=== PATIENT | female | born 1995 | race Two or more races ===

== ENCOUNTER → 2022-08-03 | Outpatient (REF) | payer OTHER ==
[2022-08-03 17:35] LABS: RSV AMPLIFICATION NEGATIVE (NEGATIVE)
== END ==
LOC: M LAB REF 16:19
PROVIDERS: ATTEND Physician Assistant
DX: B34.9 Viral infection, unspecified (principal)

== ENCOUNTER 2022-08-08 17:03 | Emergency (ER) | payer OTHER ==
[~2022-08-08] VITALS: Ht 170.2 cm; Wt 93.2 kg
[2022-08-08 17:04] VITALS: BP 150/84
[2022-08-08] MEDS ORDERED: IBUP200T46 PO (17:25)
== END 2022-08-08 21:04 | disposition left against medical advice (07) ==
LOC: M ED 17:03
DX: Z53.21 Procedure and treatment not carried out due to patient leaving prior to being seen by health care provider (principal)

== ENCOUNTER → 2023-11-30 | Outpatient (CLI) | payer MEDICAID ==
[~2023-11-30] MED LIST: IBUP200T46 PO
== END ==
LOC: M WHC 10:27
PROVIDERS: ATTEND Obstetrics & Gynecology
DX: Z53.9 Procedure and treatment not carried out, unspecified reason (principal)

== ENCOUNTER → 2023-11-30 | Outpatient (CLI) | payer MEDICAID ==
[2023-11-30 14:05] LABS: HEMATOCRIT 35.3 % (36.0-47.0); HEMOGLOBIN 11.8 g/dl (12.0-15.5); MEAN CORPUSCULAR HEMOGLOBIN 30.2 pg (27.0-33.0); MEAN CORPUSCULAR HGB CONC 33.4 g/dl (32.0-36.5); MEAN CORPUSCULAR VOLUME 90.3 fl (80.0-96.0); PLATELET COUNT, AUTOMATED 294 10^3/uL (150-450); RED BLOOD COUNT 3.91 10^6/uL (4.00-5.40); WHITE BLOOD COUNT 12.8 10^3/uL (4.0-10.0)
[2023-11-30 15:12] LABS: HIV 1&2 SCREEN NEGATIVE (NEGATIVE)
[2023-11-30 15:19] LABS: HEPATITIS C VIRUS ABY INDEX 0.04 INDEX (<0.8)
== END ==
LOC: M PLALAB 10:41
PROVIDERS: ATTEND Obstetrics & Gynecology
DX: Z34.92 Encounter for supervision of normal pregnancy, unspecified, second trimester (principal); R87.610 Atypical squamous cells of undetermined significance on cytologic smear of cervix (ASC-US); R87.618 Other abnormal cytological findings on specimens from cervix uteri

== ENCOUNTER → 2024-01-01 | Outpatient (CLI) | payer MEDICAID, OTHER | LOC: M WHC 06:48 | PROVIDERS: ATTEND Obstetrics & Gynecology | DX: Z34.92 Encounter for supervision of normal pregnancy, unspecified, second trimester (principal) ==

== ENCOUNTER → 2024-02-01 | Outpatient (CLI) | payer OTHER ==
[2024-02-01 10:50] LABS: HEMATOCRIT 32.3 % (36.0-47.0); HEMOGLOBIN 10.8 g/dl (12.0-15.5); MEAN CORPUSCULAR HEMOGLOBIN 30.6 pg (27.0-33.0); MEAN CORPUSCULAR HGB CONC 33.4 g/dl (32.0-36.5); MEAN CORPUSCULAR VOLUME 91.5 fl (80.0-96.0); PLATELET COUNT, AUTOMATED 276 10^3/uL (150-450); RED BLOOD COUNT 3.53 10^6/uL (4.00-5.40); WHITE BLOOD COUNT 16.5 10^3/uL (4.0-10.0)
== END ==
LOC: M PLALAB 07:59
PROVIDERS: ATTEND Obstetrics & Gynecology
DX: Z34.92 Encounter for supervision of normal pregnancy, unspecified, second trimester (principal)

== ENCOUNTER → 2024-04-11 | Outpatient (REF) | payer OTHER, MEDICAID | LOC: M SFHCWAGY 12:21 | PROVIDERS: ATTEND Obstetrics & Gynecology | DX: Z36.85 Encounter for antenatal screening for Streptococcus B (principal); Z3A.35 35 weeks gestation of pregnancy ==

== ENCOUNTER 2024-05-01 13:31 | Inpatient (IN) | payer OTHER, MEDICAID ==
[~2024-05-01] VITALS: Ht 167.6 cm; Wt 115.6 kg
[2024-05-01] VITALS (7 sets, daily range): BP systolic 112–143; BP diastolic 56–85; O2SAT 99
[2024-05-01] MEDS ORDERED: PREN1CHW6 PO (13:46)
[2024-05-01] MEDS ORDERED: CLAR10CA3 PO (13:46)
[2024-05-01] MEDS ORDERED: HOME MED LIST COMPLETE! XX SCH (13:50)
[2024-05-01] MEDS ORDERED: TRANEXAMIC ACID INJection 1,000 MG in NS 100 ML IV PRN (14:30)
[2024-05-01] MEDS ORDERED: METHYLERGONOVINE MALEATE 0.2MG/ML 1ML VIAL IM PRN (14:30)
[2024-05-01] MEDS ORDERED: OXYTOCIN INJ 10UNITS/ML 1ML VIAL IM PRN (14:30)
[2024-05-01] MEDS ORDERED: CARBOPROST TROMETHAMINE 250 MCG/ML AMP IM PRN (14:30)
[2024-05-01] MEDS ORDERED: LIDOCAINE 1% MDV 20ML VIAL INFIL PRN (14:30)
[2024-05-01] MEDS: LACTATED RINGER'S 1000 ML IV STA (14:37)
[2024-05-01] MEDS: miSOPROStol 50MCG 1/2 TABLET PO SCH (14:45)
[2024-05-01 14:56] LABS: HEMATOCRIT 32.9 % (36.0-47.0); HEMOGLOBIN 11.1 g/dl (12.0-15.5); MEAN CORPUSCULAR HEMOGLOBIN 29.3 pg (27.0-33.0); MEAN CORPUSCULAR HGB CONC 33.7 g/dl (32.0-36.5); MEAN CORPUSCULAR VOLUME 86.8 fl (80.0-96.0); PLATELET COUNT, AUTOMATED 270 10^3/uL (150-450); RED BLOOD COUNT 3.79 10^6/uL (4.00-5.40)
[2024-05-01 16:02] LABS: HEPATITIS C VIRUS ABY INDEX < 0.02 INDEX (<0.8)
[2024-05-02] VITALS (72 sets, daily range): BP systolic 81–159; BP diastolic 46–87; O2SAT 100
[2024-05-02] MEDS: ONDANSETRON 4MG 2ML VIAL IV PRN (02:37)
[2024-05-02] MEDS ORDERED: ePHEDrine SULFATE 25 MG/5 ML(5MG/ML) SYRINGE IVP PRN (02:55)
[2024-05-02] MEDS ORDERED: EPIDURAL/PCA KEYS XX PRN (02:55)
[2024-05-02] MEDS ORDERED: NALOXONE INJ 0.4MG/1ML VIAL IV PRN ×2 (02:55)
[2024-05-02] MEDS ORDERED: diphenhydrAMINE 50MG/ML VIAL IV PRN (02:55)
[2024-05-02] MEDS ORDERED: LR 500 ML IV PRN (02:55)
[2024-05-02] MEDS ORDERED: ONDANSETRON 4MG 2ML VIAL IV PRN ×2 (02:55→19:45)
[2024-05-02] MEDS: FENTANYL/ROPIVACAINE/NACL BAG 100 ML EPIDURAL SCH (03:05)
[2024-05-02] MEDS: LR 500 ML IV PRN (04:31)
[2024-05-02] MEDS: ePHEDrine SULFATE 25 MG/5 ML(5MG/ML) SYRINGE IVP PRN (04:31)
[2024-05-02] MEDS: OXYTOCIN DRIP 30 UNITS in IV 1 EA IV SCH ×2 (05:19→19:45)
[2024-05-02] MEDS: LR 1,000 ML IV SCH (06:43)
[2024-05-02] MEDS: OXYTOCIN DRIP 30 UNITS in IV 1 EA IV PRN ×2 (17:35→18:00)
[2024-05-02] MEDS ORDERED: LR 1,000 ML IV SCH (19:45)
[2024-05-02] MEDS ORDERED: RHO(D) IMMUNE GLOBULIN/MALTOSE 500MCG(2500IU)/2.2ML VIAL (WINRHO) IM SCH (19:45)
[2024-05-02] MEDS ORDERED: DOCUSATE SODIUM 100MG CAPSULE PO PRN (19:45)
[2024-05-02] MEDS ORDERED: ANUSOL HC CREAM 30GM TOP PRN (19:45)
[2024-05-02] MEDS: IBUPROFEN 800 MG TAB PO PRN (20:20)
[2024-05-02] MEDS: ACETAMINOPHEN 500 MG TAB PO PRN (20:20)
[2024-05-03] MEDS: DIBUCAINE 1% OINTMENT 30GM TOP PRN (05:12)
[2024-05-03] MEDS: IBUPROFEN 600MG TAB PO PRN (05:14)
[2024-05-03 06:00] VITALS: BP 114/68; O2SAT 99
[2024-05-03 08:00] VITALS: BP 114/68; TEMP 97.2; O2SAT 99
[2024-05-03] MEDS: PRENATAL VITAMINS CHEWABLE TABLET PO SCH (10:25)
[2024-05-03] MEDS: LORATADINE 10 MG TAB PO SCH (10:25)
[2024-05-03 18:00] VITALS: BP 126/76; O2SAT 99
[2024-05-04 06:00] VITALS: BP 123/71; O2SAT 100
[2024-05-04] MEDS: ACETAMINOPHEN TAB 650MG DOSE (2X325MG) PO PRN (06:02)
[2024-05-04] MEDS: MEASLES,MUMPS,RUBELLA VACCINE INJ (MMR-II) SC.IMMUN ONE (07:07)
[2024-05-04 09:39] VITALS: BP 123/71; TEMP 97.6; O2SAT 100
== END 2024-05-04 14:18 | disposition home or self-care (01) | DRG 542 ==
LOC: M LDI 13:31 → M OBS 05-02 20:30
PROVIDERS: ADMIT Advanced Practice Midwife; ATTEND Advanced Practice Midwife
PROC: 3E0P7VZ Introduction of Hormone into Female Reproductive, Via Natural or Artificial Opening (ICD-10-PCS; 2024-05-01)
PROC: 0UQC7ZZ Repair Cervix, Via Natural or Artificial Opening (ICD-10-PCS; 2024-05-01)
PROC: 10E0XZZ Delivery of Products of Conception, External Approach (ICD-10-PCS; principal; 2024-05-02)
PROC: 0HQ9XZZ Repair Perineum Skin, External Approach (ICD-10-PCS; 2024-05-02)
DX: O41.03X0 Oligohydramnios, third trimester, not applicable or unspecified (principal); O99.324 Drug use complicating childbirth; Z37.0 Single live birth; Z3A.38 38 weeks gestation of pregnancy; F12.90 Cannabis use, unspecified, uncomplicated; O70.0 First degree perineal laceration during delivery; O34.43 Maternal care for other abnormalities of cervix, third trimester

== ENCOUNTER → 2024-12-25 | Outpatient (REF) | payer MEDICAID, OTHER ==
[~2024-12-25] MED LIST changes: +CLAR10CA3 PO; +PREN1CHW6 PO
[2024-12-28 16:48] LABS: HPV APTIMA Not Detected (Not Detected)
== END ==
LOC: M SFHCWAGY 13:05
PROVIDERS: ATTEND Obstetrics & Gynecology
DX: Z12.4 Encounter for screening for malignant neoplasm of cervix (principal)